=== PATIENT | female | born 1965 | race African-American/Black ===

== ENCOUNTER 2017-02-16 15:57 | Emergency (ER) | payer BC, MEDICAID ==
[~2017-02-16] VITALS: Ht 172.7 cm; Wt 106.6 kg
[~2017-02-16 15:57] MED LIST: LORA10TA19 PO; ZOLP5TAB1 PO
[2017-02-16 16:00] VITALS: BP 135/86
--- NOTE | 2017-02-16 18:18 | NUR ---
Patient taken to bed 06 via wheelchair per tech.
--- NOTE | 2017-02-16 18:19 | NUR ---
PT PRESENTS TO ER W/C/O SOB/WHEEZING X1 WEEK. HX ASTHMA. DENIES N/V/D; SKIN IS PINK/WARM/DRY; AAOX4 WITH EVEN AND STEADY GAIT; LUNGS CLEAR BL; HR EVEN AND REGULAR; PT DENIES ANY FEVER, CP, SOB, OR COUGH AT THIS TIME; PATIENT STATES PAIN OF 0/10 AT THIS TIME; VSS; PATIENT POSITIONED FOR COMFORT; HOB ELEVATED; BEDRAILS UP X2; BED DOWN. ER MD MADE AWARE OF PT STATUS.
--- NOTE | 2017-02-16 18:37 | NUR ---
Dr. Bautista evaluating patient at bedside.
--- NOTE | 2017-02-16 18:38 | NUR ---
Immanuel troy in [facility] - 02/16/17 at 1904 by MED1 Patient being evaluated by KIMBERLEE at bedside.
[2017-02-16] MEDS ORDERED: DEXAMETHASONE 10 MG/ML VIAL IM ONE (18:45)
[2017-02-16] MEDS ORDERED: ALBUTEROL SULFATE/IPRATROPIU 3 ML SOL IH ONE (18:45)
[2017-02-16] MEDS ORDERED: cefTRIAXone 1,000 MG in LIDOCAINE 1% ED 2.1 ML IM ONE (18:45)
--- NOTE | 2017-02-16 19:04 | NUR ---
RT AT BEDSIDE FOR 1ST BREATHING TREATMENT.
--- NOTE | 2017-02-16 19:05 | NUR ---
GAVE REPORT TO VONDA WOODWARD.
--- NOTE | 2017-02-16 19:08 | NUR ---
PT RESTING IN BED, CURRENTLY RECEIVING NEB TX, NO S/S OF DISTRESS NOTED AT THE MOMENT.
[2017-02-16 19:18] VITALS: BP 118/75
--- NOTE | 2017-02-16 19:18 | NUR ---
Patient discharged with v/s stable. Written and verbal after care instructions given and explained. Patient alert, oriented and verbalized understanding of instructions. Ambulatory with steady gait. All questions addressed prior to discharge. ID band removed. Patient advised to follow up with PMD. Rx of ALBUTEROL, PREDNISONE AND AZITHROMYCIN given. Patient educated on indication of medication including possible reaction and side effects. Opportunity to ask questions provided and answered.
== END 2017-02-16 19:18 | disposition home or self-care (01) ==
LOC: MED 15:57
DX: J44.9 Chronic obstructive pulmonary disease, unspecified (principal); Z90.710 Acquired absence of both cervix and uterus
CPT/HCPCS: 71010; 94640; 96372; 99284; J0696; J1100; J2001; J7620

== ENCOUNTER 2019-02-23 11:57 | Outpatient (CLI) | payer MEDICAID, OTHER ==
[2019-02-23 12:37] LABS: BASOPHILS % (AUTO) 0.6 % (0.0-2.0); EOSINOPHILS # (AUTO) 0.2 K/uL (0-0.4); EOSINOPHILS % (AUTO) 4.1 % (0.0-4.0); HEMOGLOBIN 9.3 g/dL (12.0-16.0); MONOCYTES # (AUTO) 0.5 K/uL (0.8-1.0); MONOCYTES % (AUTO) 9.3 % (1.7-9.3); RED BLOOD CELL COUNT(AUTO) 4.01 MIL/uL (4.20-5.40); RED CELL DISTRIBUTION WIDTH 17.5 % (11.6-13.7)
[2019-02-23 12:45] LABS: APPEARANCE,URINE CLEAR (CLEAR); BILIRUBIN,URINE NEGATIVE (NEGATIVE); BLOOD, URINE NEGATIVE (NEGATIVE); COLOR,URINE ORANGE (YELLOW); LEUKOCYTE ESTERASE ,URINE NEGATIVE (NEGATIVE); NITRITE, URINE NEGATIVE (NEGATIVE); UGLUCOSE NEGATIVE (NEGATIVE)
[2019-02-23 13:00] LABS: HEMATOCRIT 30.9 % (36-48); LYMPHOCYTES # (AUTO) 1.8 K/uL (2.5-16.5); LYMPHOCYTES % (AUTO) 36.3 % (20.5-51.1); MEAN CORPUSCULAR HEMOGLOBIN 23 pg (27-31); MEAN CORPUSCULAR HGB CONC 30 g/dL (33-37); NEUTROPHILS # (AUTO) 2.5 K/uL (1.8-7.7); NEUTROPHILS % (AUTO) 49.7 % (42.2-75.2); PLATELET COUNT (AUTO) 336 K/uL (140-450)
[2019-02-23 13:02] LABS: ALBUMIN 3.4 g/dL (3.4-5.0); ANION GAP 12.8 (8-16); CARBON DIOXIDE 27.6 mmol/L (21-32); FREE T4 (FREE THYROXINE) 0.77 ng/dL (0.76-1.46); POTASSIUM 4.4 mmol/L (3.5-5.1); THYROID STIMULATING HORMONE 1.53 uIU/mL (0.34-3.74); TOTAL BILIRUBIN 0.3 mg/dL (0.0-1.0)
[2019-02-24 15:34] LABS: HEPATITIS A ANTIBODY IGM Negative (Negative); HEPATITIS B SURFACE ANTIGEN Negative (Negative)
[2019-02-27 12:28] LABS: FERRITIN 7 ng/mL (15-150)
== END 2019-02-23 20:30 | disposition home or self-care (01) ==
LOC: MLB 11:57
DX: Z01.818 Encounter for other preprocedural examination (principal); K21.9 Gastro-esophageal reflux disease without esophagitis; E66.01 Morbid (severe) obesity due to excess calories
CPT/HCPCS: 36415; 76705; 80053; 80074; 81003; 82306; 82728; 83036; 83970; 84439; 84443; 85025

== ENCOUNTER 2019-02-26 09:44 | Outpatient (CLI) | payer OTHER | END 2019-02-26 21:28 | disposition home or self-care (01) | LOC: MRD 09:44 | DX: K44.9 Diaphragmatic hernia without obstruction or gangrene (principal); K21.9 Gastro-esophageal reflux disease without esophagitis; Z98.84 Bariatric surgery status | CPT/HCPCS: 74241 ==

== ENCOUNTER 2019-05-03 14:02 | Emergency (ER) | payer OTHER ==
[~2019-05-03] VITALS: Ht 175.3 cm; Wt 108.9 kg
[2019-05-03 14:06] VITALS: BP 122/67
--- NOTE | 2019-05-03 14:44 | NUR ---
EKG DONE BEDSIDE. URINE SAMPLE COLLECTED AND SENT
[2019-05-03 14:59] LABS: BASOPHILS # (AUTO) 0.1 K/uL (0.00-0.22); EOSINOPHILS # (AUTO) 0.3 K/uL (0-0.4); EOSINOPHILS % (AUTO) 5.4 % (0.0-4.0); HEMATOCRIT 28.3 % (36-48); HEMOGLOBIN 8.5 g/dL (12.0-16.0); LYMPHOCYTES # (AUTO) 1.5 K/uL (2.5-16.5); LYMPHOCYTES % (AUTO) 24.9 % (20.5-51.1); MEAN CORPUSCULAR HEMOGLOBIN 23 pg (27-31); MEAN CORPUSCULAR HGB CONC 30 g/dL (33-37); MEAN CORPUSCULAR VOLUME 76.9 fL (80-94); MONOCYTES # (AUTO) 0.5 K/uL (0.8-1.0); MONOCYTES % (AUTO) 7.9 % (1.7-9.3); NEUTROPHILS # (AUTO) 3.5 K/uL (1.8-7.7); NEUTROPHILS % (AUTO) 60.8 % (42.2-75.2); PLATELET COUNT (AUTO) 308 K/uL (140-450); RED BLOOD CELL COUNT(AUTO) 3.68 MIL/uL (4.20-5.40); RED CELL DISTRIBUTION WIDTH 17.7 % (11.6-13.7); WHITE BLOOD COUNT (AUTO) 5.8 K/uL (4.8-10.8)
[2019-05-03 15:17] LABS: ALBUMIN 3.2 g/dL (3.4-5.0); ANION GAP 11.2 (8-16); CARBON DIOXIDE 25.2 mmol/L (21-32); POTASSIUM 4.4 mmol/L (3.5-5.1); TOTAL BILIRUBIN 0.2 mg/dL (0.0-1.0)
[2019-05-03 15:26] LABS: PROTHROMBIN TIME 9.1 secs (10.8-13.4)
[2019-05-03 15:42] LABS: APPEARANCE,URINE CLEAR (CLEAR); BILIRUBIN,URINE 1+ (NEGATIVE); BLOOD, URINE NEGATIVE (NEGATIVE); COLOR,URINE YELLOW (YELLOW); LEUKOCYTE ESTERASE ,URINE NEGATIVE (NEGATIVE); NITRITE, URINE NEGATIVE (NEGATIVE); PH,URINE 5.5 (5.0-9.0); UGLUCOSE NEGATIVE (NEGATIVE)
[2019-05-03] MEDS ORDERED: HYDROcodone/APAP 5/325 MG 1 TAB TAB PO ONE (15:55)
[2019-05-03] MEDS ORDERED: KETOROLAC 30 MG/ML VIAL IM ONE (16:05)
--- NOTE | 2019-05-03 16:11 | NUR ---
PT WAS ADMINISTED WITH TORADOL PER PROFESSOR OF GERMAN ORDER
--- NOTE | 2019-05-03 16:24 | NUR ---
Patient discharged with v/s stable. Written and verbal after care instructions given and explained. Patient alert, oriented and verbalized understanding of instructions. Ambulatory with steady gait. All questions addressed prior to discharge. ID band removed. Patient advised to follow up with PMD. the RX given. Patient educated on indication of medication including possible reaction and side effects. Opportunity to ask questions provided and answered.
[2019-05-03 16:25] VITALS: BP 124/78
== END 2019-05-03 16:24 | disposition home or self-care (01) ==
LOC: MED 14:02
DX: S16.1XXA Strain of muscle, fascia and tendon at neck level, initial encounter (principal); J45.909 Unspecified asthma, uncomplicated; D64.9 Anemia, unspecified; Z98.890 Other specified postprocedural states; Z90.710 Acquired absence of both cervix and uterus; Z79.899 Other long term (current) drug therapy; X58.XXXA Exposure to other specified factors, initial encounter; Y93.89 Activity, other specified; Y92.89 Other specified places as the place of occurrence of the external cause; Y99.8 Other external cause status
CPT/HCPCS: 36415; 71045; 80053; 81003; 83880; 84484; 85025; 85610; 85730; 93005; 96372; 99284; J1885; Q0092

== ENCOUNTER 2020-01-27 09:39 | Emergency (ER) | payer MEDICAID, OTHER ==
[~2020-01-27] VITALS: Ht 175.3 cm; Wt 108.0 kg
[2020-01-27 09:49] VITALS: BP 137/95
--- NOTE | 2020-01-27 09:55 | NUR ---
PT AMB TGO BED 11.
[2020-01-27] MEDS ORDERED: MORPHINE SULFATE 4 MG/ML SYR IVP ONE (10:00)
[2020-01-27] MEDS ORDERED: NACL 0.9% 1,000 ML IV ONE (10:00)
[2020-01-27] MEDS ORDERED: ONDANSETRON 4 MG/2 ML VIAL IVP ONE (10:00)
--- NOTE | 2020-01-27 10:00 | NUR ---
DR HOLDER EVALUATING PT AT BEDSIDE
[2020-01-27 10:17] LABS: BASOPHILS % (AUTO) 0.5 % (0.0-2.0); EOSINOPHILS # (AUTO) 0.5 K/uL (0-0.4); EOSINOPHILS % (AUTO) 7.4 % (0.0-4.0); HEMATOCRIT 36.6 % (36-48); LYMPHOCYTES # (AUTO) 1.8 K/uL (2.5-16.5); LYMPHOCYTES % (AUTO) 30.3 % (20.5-51.1); MEAN CORPUSCULAR HEMOGLOBIN 25 pg (27-31); MEAN CORPUSCULAR HGB CONC 30 g/dL (33-37); MEAN CORPUSCULAR VOLUME 84.2 fL (80-94); MONOCYTES # (AUTO) 0.6 K/uL (0.8-1.0); MONOCYTES % (AUTO) 10.7 % (1.7-9.3); NEUTROPHILS # (AUTO) 3.1 K/uL (1.8-7.7); NEUTROPHILS % (AUTO) 51.1 % (42.2-75.2); PLATELET COUNT (AUTO) 337 K/uL (140-450); RED BLOOD CELL COUNT(AUTO) 4.35 MIL/uL (4.20-5.40); RED CELL DISTRIBUTION WIDTH 21.3 % (11.6-13.7); WHITE BLOOD COUNT (AUTO) 6.1 K/uL (4.8-10.8)
--- NOTE | 2020-01-27 10:21 | NUR ---
54/F C/O LOWER MID ABD PAIN AND LEFT LOWER ABDOMINAL PAIN X 5 DAYS. LAPAROSCOPIC GASTRIC BYPASS REVISION 9 DAYS AGO IN [place]. PAIN DESCRIBED "SHOCK", INTERMITTENT, RATED 7/10 AT TRIAGE. STATES WHEN INHALING THERE SEEMS TO BE AIR "STUCK" IN LLQ AREA. NO NAUSEA/VOMITING. LAP SURGICAL INCISIONS ON ABD, NO DRAINAGE OR SIGNS OF INFECTION. VSS. PLACED ON BEDSIDE MONITOR. MED HX: DM, HTN,ASTHMA
[2020-01-27 10:34] LABS: ALBUMIN 3.7 g/dL (3.4-5.0); ANION GAP 17.1 (8-16); CARBON DIOXIDE 22.7 mmol/L (21-32); CREATININE 1.3 mg/dL (0.6-1.3); POTASSIUM 4.8 mmol/L (3.5-5.1); TOTAL BILIRUBIN 0.4 mg/dL (0.0-1.0)
--- NOTE | 2020-01-27 10:47 | NUR ---
TO CT SCAN VIA W/C
--- NOTE | 2020-01-27 10:54 | NUR ---
BACK TO BED [address] SCAN VIA W/C
[2020-01-27 11:52] LABS: APPEARANCE,URINE CLEAR (CLEAR); BILIRUBIN,URINE 2+ (NEGATIVE); BLOOD, URINE TRACE-I (NEGATIVE); COLOR,URINE YELLOW (YELLOW); LEUKOCYTE ESTERASE ,URINE NEGATIVE (NEGATIVE); NITRITE, URINE NEGATIVE (NEGATIVE); UGLUCOSE NEGATIVE (NEGATIVE)
[2020-01-27 12:02] LABS: RBC,URINE 0-5 /HPF (0-5); WBC,URINE 0-5 /HPF (0-5)
[2020-01-27 12:08] LABS: BARBITURATE, URINE NEGATIVE ng/ml (NEG <=200); BENZODIAZEPINE, URINE NEGATIVE ng/mL (NEG <=200); CANNABINOID, URINE POSITIVE ng/mL (NEG <=50); COCAINE, URINE NEGATIVE ng/mL (NEG <=300); OPIATE, URINE NEGATIVE ng/mL (NEG <=2000); PHENCYCLIDINE SCREEN,URINE NEGATIVE ng/mL (NEG <=25)
--- NOTE | 2020-01-27 12:40 | NUR ---
Patient discharged with v/s stable. Written and verbal after care instructions given and explained. Patient alert, oriented and verbalized understanding of instructions. Ambulatory with steady gait. All questions addressed prior to discharge. ID band removed. Patient advised to follow up with PMD. Rx of BENTYL given. Patient educated on indication of medication including possible reaction and side effects. Opportunity to ask questions provided and answered.
[2020-01-27 13:07] VITALS: BP 117/72
== END 2020-01-27 12:40 | disposition home or self-care (01) ==
LOC: MED 09:39
DX: R10.9 Unspecified abdominal pain (principal); J44.9 Chronic obstructive pulmonary disease, unspecified; I10 Essential (primary) hypertension; Z98.84 Bariatric surgery status; Z79.899 Other long term (current) drug therapy
CPT/HCPCS: 36415; 74177; 80053; 80305; 81001; 81025; 83690; 85025; 96361; 96374; 96375; 99285; J2270; J2405; Q9967

== ENCOUNTER 2021-08-21 15:28 | Emergency (ER) | payer BC, MEDICAID ==
[~2021-08-21] VITALS: Ht 175.3 cm; Wt 95.7 kg
[2021-08-21 15:29] VITALS: BP 147/78
--- NOTE | 2021-08-21 15:57 | NUR ---
Dr. Mathur at bedside evaluating patient.
[2021-08-21] MEDS ORDERED: ONDANSETRON 4 MG/2 ML VIAL IVP ONE (16:05)
[2021-08-21 16:36] LABS: BASOPHILS % (AUTO) 0.4 % (0.0-2.0); EOSINOPHILS % (AUTO) 0.2 % (0.0-4.0); HEMATOCRIT 33.8 % (36-48); HEMOGLOBIN 10.7 g/dL (12.0-16.0); LYMPHOCYTES # (AUTO) 1.2 K/uL (2.5-16.5); LYMPHOCYTES % (AUTO) 21.1 % (20.5-51.1); MEAN CORPUSCULAR HEMOGLOBIN 27 pg (27-31); MEAN CORPUSCULAR HGB CONC 32 g/dL (33-37); MEAN CORPUSCULAR VOLUME 83.6 fL (80-94); MONOCYTES # (AUTO) 0.3 K/uL (0.8-1.0); MONOCYTES % (AUTO) 4.6 % (1.7-9.3); NEUTROPHILS # (AUTO) 4.1 K/uL (1.8-7.7); NEUTROPHILS % (AUTO) 73.7 % (42.2-75.2); PLATELET COUNT (AUTO) 371 K/uL (140-450); RED BLOOD CELL COUNT(AUTO) 4.04 MIL/uL (4.20-5.40); RED CELL DISTRIBUTION WIDTH 16.5 % (11.6-13.7); WHITE BLOOD COUNT (AUTO) 5.5 K/uL (4.8-10.8)
--- NOTE | 2021-08-21 16:42 | NUR ---
Obtained blood specimens and handed them to CPT. Anca
--- NOTE | 2021-08-21 16:48 | NUR ---
55 y/o female c/o abdominal bloating x 7 months. Patient also has a c/o intermittent right flank pain. Patient reports dizziness x 1 day. Patient denies dysuria, hematuria, vomiting and diarrhea. Patient takes OTC IBS support. Medical History: ADHD Medication: Paco [place]alvo
[2021-08-21 16:50] LABS: ALBUMIN 3.6 g/dL (3.4-5.0); ANION GAP 13.5 (8-16); CARBON DIOXIDE 26.9 mmol/L (21-32); POTASSIUM 4.4 mmol/L (3.5-5.1); TOTAL BILIRUBIN 0.4 mg/dL (0.0-1.0)
--- NOTE | 2021-08-21 17:35 | NUR ---
55/F PRESENTS TO ED WITH C/O ABDOMINAL DISTENTION X7-8 MONTHS WITH INTERMITTENT PAIN. PATIENT STATES PAIN WORSENS WHEN ABDOMEN IS PUSHED ON, STATING IT ALSO MAKES HER FEEL NAUSEOUS. PATIENT STATING TODAY SHE BEGAN FEELING CHILLS AND WAS CONCERNED, STATING LAST BOWEL MOVEMENT WAS 30 MIN PRIOR TO ARRIVAL WITH THE AID OF A STOOL SOFTNER. PATIENT DENIES URINARY SYMPTOMS, FEVERS OR COUGH AT THIS TIME.
--- NOTE | 2021-08-21 17:58 | NUR ---
Radiologist at bedside giving patient oral contrast.
--- NOTE | 2021-08-21 19:13 | NUR ---
Pt report given to JUNITO Keenan. Transfer of care at this time.
--- NOTE | 2021-08-21 19:56 | NUR ---
PT LEFT FOR CT
--- NOTE | 2021-08-21 20:19 | NUR ---
PT BACK FROM CT . VITALS CHECKED. WNL
[2021-08-21 21:36] VITALS: BP 127/97
--- NOTE | 2021-08-21 21:36 | NUR ---
Patient discharged with v/s stable. Written and verbal after care instructions given and explained. Patient verbalized understanding. Ambulatory with steady gait. All questions addressed prior to discharge. Advised to follow up with PMD.
== END 2021-08-21 21:36 | disposition home or self-care (01) ==
LOC: MED 15:28
DX: R14.0 Abdominal distension (gaseous) (principal); R10.9 Unspecified abdominal pain; G89.29 Other chronic pain; J44.9 Chronic obstructive pulmonary disease, unspecified; I10 Essential (primary) hypertension; Z98.890 Other specified postprocedural states; Z79.899 Other long term (current) drug therapy; Z98.84 Bariatric surgery status
CPT/HCPCS: 36415; 74177; 80053; 83690; 83735; 85025; 96374; 99285; J2405; Q9967

== ENCOUNTER 2022-11-09 14:51 | Emergency (ER) | payer BC ==
[~2022-11-09] VITALS: Ht 172.7 cm; Wt 93.0 kg
[2022-11-09 15:51] VITALS: BP 120/86
[2022-11-09 16:18] LABS: BASOPHILS # (AUTO) 0.1 K/uL (0.00-0.22); BASOPHILS % (AUTO) 0.9 % (0.0-2.0); EOSINOPHILS # (AUTO) 0.3 K/uL (0-0.4); EOSINOPHILS % (AUTO) 5.5 % (0.0-4.0); HEMATOCRIT 36.1 % (36-48); HEMOGLOBIN 11.6 g/dL (12.0-16.0); LYMPHOCYTES # (AUTO) 2.1 K/uL (2.5-16.5); LYMPHOCYTES % (AUTO) 35.6 % (20.5-51.1); MEAN CORPUSCULAR HEMOGLOBIN 27 pg (27-31); MEAN CORPUSCULAR HGB CONC 32 g/dL (33-37); MEAN CORPUSCULAR VOLUME 83.5 fL (80-94); MONOCYTES # (AUTO) 0.4 K/uL (0.8-1.0); MONOCYTES % (AUTO) 6.9 % (1.7-9.3); NEUTROPHILS # (AUTO) 3.1 K/uL (1.8-7.7); NEUTROPHILS % (AUTO) 51.1 % (42.2-75.2); PLATELET COUNT (AUTO) 363 K/uL (140-450); RED BLOOD CELL COUNT(AUTO) 4.32 MIL/uL (4.20-5.40); RED CELL DISTRIBUTION WIDTH 16.2 % (11.6-13.7)
[2022-11-09 16:41] LABS: ALBUMIN 4.1 g/dL (3.4-5.0); ANION GAP 10.9 (8-16); FREE T4 (FREE THYROXINE) 0.67 ng/dL (0.76-1.46); MAGNESIUM 2.4 mg/dL (1.8-2.4); PHOSPHORUS 3.2 mg/dL (2.5-4.9); POTASSIUM 3.9 mmol/L (3.5-5.1); THYROID STIMULATING HORMONE 3.45 uIU/mL (0.34-3.74); TOTAL BILIRUBIN 0.2 mg/dL (0.0-1.0)
--- NOTE | 2022-11-09 18:00 | NUR ---
]T LEFR WITHOUT RECEIVING PRINTED DCI, BUT MD SPOKE WITH PT RE RESULTS AND F/U
--- NOTE | 2022-11-09 20:07 | NUR ---
Patient discharged with v/s stable. verbal after care instructions given and explained BY DR PATRICIO. Patient alert, oriented and verbalized understanding of instructions. with . All questions addressed prior to discharge. ID band removed. Patient advised to follow up with PMD.. Patient educated on indication of medication including possible reaction and side effects. Opportunity to ask questions provided and answered.
== END 2022-11-09 20:07 | disposition home or self-care (01) ==
LOC: MED 14:51
DX: E04.1 Nontoxic single thyroid nodule (principal); E03.9 Hypothyroidism, unspecified; E11.9 Type 2 diabetes mellitus without complications; I10 Essential (primary) hypertension; J44.9 Chronic obstructive pulmonary disease, unspecified; J45.909 Unspecified asthma, uncomplicated; E78.00 Pure hypercholesterolemia, unspecified; Z79.4 Long term (current) use of insulin; Z79.899 Other long term (current) drug therapy
CPT/HCPCS: 36415; 80053; 83735; 84100; 84439; 84443; 85025; 99283

== ENCOUNTER 2023-06-30 20:35 | Emergency (ER) | payer BC ==
[~2023-06-30] VITALS: Ht 175.3 cm; Wt 93.9 kg
[2023-06-30 20:55] VITALS: BP 121/69; PULSE 101; RESP 19; TEMP 98.4; O2SAT 98
[2023-06-30 21:00] VITALS: O2SAT 98
[2023-06-30] MEDS ORDERED: DOXY-690 PO (22:15)
[2023-06-30] MEDS ORDERED: CYCL-711 PO (23:41)
[2023-07-01 00:08] VITALS: BP 129/76; PULSE 77; RESP 17; TEMP 98.2; O2SAT 99
== END 2023-07-01 00:09 | disposition home or self-care (01) ==
LOC: MED 20:35
DX: T81.49XA Infection following a procedure, other surgical site, initial encounter (principal); R25.2 Cramp and spasm; R00.0 Tachycardia, unspecified; J44.9 Chronic obstructive pulmonary disease, unspecified; E11.9 Type 2 diabetes mellitus without complications; I10 Essential (primary) hypertension; F90.9 Attention-deficit hyperactivity disorder, unspecified type; Z98.890 Other specified postprocedural states; Z79.899 Other long term (current) drug therapy; Z79.2 Long term (current) use of antibiotics; Y84.8 Other medical procedures as the cause of abnormal reaction of the patient, or of later complication, without mention of misadventure at the time of the procedure
CPT/HCPCS: 93971; 99284; Q0092